=== PATIENT | male | born 1960 | race Caucasian/White ===

== ENCOUNTER 2017-04-20 16:51 | Inpatient (IN) | payer BC ==
[2017-04-20] VITALS (9 sets, daily range): BP systolic 114–180; BP diastolic 72–107; PULSE 95–151; RESP 16–20; O2SAT 96–98
[~2017-04-20] VITALS: Ht 172.7 cm; Wt 108.0 kg
[2017-04-20] MEDS ORDERED: JANT2.5T PO (17:36)
[2017-04-20] MEDS ORDERED: ASPI-516 CHEW (17:36)
[2017-04-20] MEDS ORDERED: JANT5TAB PO (17:36)
[2017-04-20] MEDS ORDERED: OMEP20TA93 PO (17:36)
[2017-04-20] MEDS ORDERED: LISI40TA PO (17:36)
[2017-04-20] MEDS ORDERED: AMLO2.5T PO (17:36)
[2017-04-20] MEDS ORDERED: METO50TA PO (17:36)
[2017-04-20] MEDS ORDERED: ROSU1TAB10 PO (17:36)
[2017-04-20] MEDS ORDERED: ALLO300T2 PO (17:36)
[2017-04-20] MEDS ORDERED: DILTIAZEM HCL 25 MG/5 ML VIAL IV ONE ×2 (17:45→18:15)
--- NOTE | 2017-04-20 17:48 | PD ---
HPI Chief Complaint: Chest Pain Time Seen by Provider: 17:42 Travel History International Travel<30 days: No Contact w/Intl Traveler<30days: No Traveled to known affect area: No History of Present Illness HPI 56yo M with PMH of CAD s/p stent last year, aortic valve replacement on coumadin , here with c/o chest pain that has been worst for 30 minutes. Pain is left sided and had discomfort for 24 hours but worst left 30 minutes. Associated with sob. Denies any fever, n/v, abdominal pain, focal weakness or numbness. PFSH Past Medical History Cardiac Catheterization: Yes High Cholesterol: Yes Coronary Artery Disease: Yes Gout: Yes Hypertension: Yes Tetanus Vaccination: Unknown Influenza Vaccination: No Past Surgical History Coronary Artery Bypass Graft: Yes Valve Replacement: Yes Social History Alcohol Use: Yes (BEER DAILY ) Tobacco Use: No Substance Use: No Allergies-Medications (Allergen,Severity, Reaction): Coded Allergies: No Known Allergies (Unverified , 04/20/17) Reported Meds & Prescriptions Reported Meds & Active Scripts Active Reported Aspirin 81 Mg Chew 81 Mg CHEW DAILY Amlodipine (Amlodipine Besylate) 2.5 Mg Tab 2.5 Mg PO DAILY Rosuvastatin (Rosuvastatin Calcium) 40 Mg Tab 40 Mg PO DAILY Omeprazole 20 Mg Tab 20 Mg PO DAILY Allopurinol 300 Mg Tab 300 Mg PO DAILY Lisinopril 40 Mg Tab 40 Mg PO DAILY Jantoven (Warfarin) 5 Mg Tab 5 Mg PO SAT Jantoven (Warfarin) 2.5 Mg Tab 2.5 Mg PO ALL OTHER DAYS Metoprolol Tartrate 50 Mg Tab 50 Mg PO BID Review of Systems Except as stated in HPI: all other systems reviewed are Neg Physical Exam Narrative GENERAL: 56yo M in moderate distress. SKIN: Focused skin assessment warm/dry. HEAD: Atraumatic. Normocephalic. EYES: Pupils equal and round. No scleral icterus. No injection or drainage. ENT: No nasal bleeding or discharge. Mucous membranes pink and moist. NECK: Trachea midline. No JVD. CARDIOVASCULAR: Irregular rate and rhythm at 148bpm. RESPIRATORY: + accessory muscle use. Clear to auscultation. Breath sounds equal bilaterally. GASTROINTESTINAL: Abdomen soft, non-tender, nondistended. MUSCULOSKELETAL: No obvious deformities. No clubbing. No cyanosis. +Bilateral lower extremity edema. NEUROLOGICAL: Awake and alert. No obvious cranial nerve deficits. Motor grossly within normal limits. Normal speech. PSYCHIATRIC: Appropriate mood and affect; insight and judgment normal. Data Data Last Documented VS Vital Signs Date Time Temp Pulse Resp B/P (MAP) Pulse Ox O2 Delivery O2 Flow Rate FiO2 04/20/17 19:08 148 138/82 04/20/17 19:07 20 97 Nasal Cannula 1.00 Orders Orders Diltiazem Inj (Cardizem Inj) (04/20/17 17:45) Complete Blood Count With Diff (04/20/17 17:44) Basic Metabolic Panel (Bmp) (04/20/17 17:44) Prothrombin Time / Inr (Pt) (04/20/17 17:44) Act Partial Throm Time (Ptt) (04/20/17 17:44) Troponin I (04/20/17 17:44) Chest, Single Ap (04/20/17 ) Diltiazem Inj (Cardizem Inj) (04/20/17 18:00) Diltiazem Inj (Cardizem Inj) (04/20/17 18:15) Diltiazem Inj (Cardizem Inj) (04/20/17 18:30) B-Type Natriuretic Peptide (04/20/17 19:03) Admit Order (Ed Use Only) (04/20/17 19:15) Labs Laboratory Tests Test 04/20/17 17:52 White Blood Count 7.5 TH/MM3 Red Blood Count 6.00 MIL/MM3 Hemoglobin 16.5 GM/DL Hematocrit 48.1 % Mean Corpuscular Volume 80.1 FL Mean Corpuscular Hemoglobin 27.4 PG Mean Corpuscular Hemoglobin Concent 34.2 % Red Cell Distribution Width 14.4 % Platelet Count 227 TH/MM3 Mean Platelet Volume 7.6 FL Neutrophils (%) (Auto) 59.6 % Lymphocytes (%) (Auto) 24.9 % Monocytes (%) (Auto) 13.1 % Eosinophils (%) (Auto) 1.8 % Basophils (%) (Auto) 0.6 % Neutrophils # (Auto) 4.5 TH/MM3 Lymphocytes # (Auto) 1.9 TH/MM3 Monocytes # (Auto) 1.0 TH/MM3 Eosinophils # (Auto) 0.1 TH/MM3 Basophils # (Auto) 0.0 TH/MM3 CBC Comment DIFF FINAL Differential Comment Prothrombin Time 14.9 SEC Prothromb Time International Ratio 1.5 RATIO Activated Partial Thromboplast Time 29.9 SEC Blood Urea Nitrogen 15 MG/DL Creatinine 0.89 MG/DL Random Glucose 107 MG/DL Calcium Level 9.7 MG/DL Sodium Level 138 MEQ/L Potassium Level 3.5 MEQ/L Chloride Level 104 MEQ/L Carbon Dioxide Level 24.3 MEQ/L Anion Gap 10 MEQ/L Estimat Glomerular Filtration Rate 88 ML/MIN Troponin I 0.06 NG/ML [facility] Medical Decision Making Medical Screen Exam Complete: Yes Emergency Medical Condition: Yes Interpretation(s) EKG: Aflutter at 148bpm. No significant ST elevation or depression. EKG #2: AFib at 112bpm. Normal axis. Differential Diagnosis Aflutter RVR vs. ACS vs. pneumonia Narrative Course 56yo M with CAD s/p stent here with left sided chest pain, sob, and diaphoresis. Pt is in aflutter with RVR at 148bpm. Said he has had this before. Pt given cardizem 25mg IV and heart rate was still high. Pt then given cardizem 30mg IV and heart rate improved to low 100s. Will place pt on cardizem drip. Pt is from [place] and does not have boat oar maker here. Pt reevaluated at bedside and currently denies any chest pain or sob. Labs reviewed, no leukocytosis. H/H normal. Troponin slightly elevated at 0.06. Pt is already anticoagulated with coumadin although not therapeutic with INR only 1.5. CXR showed mild bibasilar atelectasis. Discussed with Dr. Vaughn and accepted to her service. Critical Care Narrative Aggregate critical care time was 40 minutes. Time to perform other separately billable procedures was not included in the critical care time. My time did not include minutes spent treating any other patients simultaneously or on activities that did not directly contribute to the patient's treatment. The services I provided to this patient were to treat and/or prevent clinically significant deterioration that could result in: cardiovascular collapse or . I provided critical care services requiring my management, as noted below: Chart data review, documentation time, medication orders and management, vital sign assessments/reviewing monitor data, ordering and reviewing lab tests, ordering and interpreting/reviewing x- rays and diagnostic studies, care of the patient and discussion of the patient with the admitting physicians. Diagnosis Primary Impression: Atrial fibrillation with RVR Additional Impression: Chest pain Qualified Codes: R07.9 - Chest pain, unspecified Admitting Information Admitting Physician Requests: it Rebecca Alvarado DO Apr 20, 2017 17:48
[2017-04-20] MEDS ORDERED: DILTIAZEM HCL 50 MG/10 ML VIAL IV ONE (18:00)
[2017-04-20 18:21] LABS: AUTOMATED NEUTROPHIL # 4.5 TH/MM3 (1.8-7.7); BASOPHIL % 0.6 % (0.0-2.0); EOSINOPHIL # 0.1 TH/MM3 (0-0.4); EOSINOPHIL % 1.8 % (0.0-4.0); HEMATOCRIT 48.1 % (39.0-51.0); HEMOGLOBIN 16.5 GM/DL (13.0-17.0); LYMPH % 24.9 % (9.0-44.0); LYMPHOCYTE # 1.9 TH/MM3 (1.0-4.8); MEAN CELL VOLUME 80.1 FL (80.0-100.0); MEAN CORPUSCULAR HEMOGLOBIN 27.4 PG (27.0-34.0); MEAN CORPUSCULAR HGB CONC 34.2 % (32.0-36.0); MEAN PLATELET VOLUME 7.6 FL (7.0-11.0); MONO % 13.1 % (0.0-8.0); NEUT % 59.6 % (16.0-70.0); PLATELET COUNT 227 TH/MM3 (150-450); RED CELL DISTRIBUTION WIDTH 14.4 % (11.6-17.2); WHITE BLOOD COUNT 7.5 TH/MM3 (4.0-11.0)
--- NOTE | 2017-04-20 18:22 | RADRPT ---
EXAM DATE/TIME: 04/20/2017 17:57 [facility] COMPARISON: No previous studies available for comparison. INDICATIONS : Palpitations, short of breath. Cough. Pt fell on left side 2 months ago. MEDICAL HISTORY : None. SURGICAL HISTORY : CABG. ENCOUNTER: Initial ACUITY: 4 - 6 months PAIN SCORE: 0/10 LOCATION: Bilateral chest FINDINGS: Trace atelectasis seen in both bases. No effusion demonstrated. No pneumothorax. Heart size upper limits of normal. Patient has had previous median sternotomy and aortic valve replac ement. CONCLUSION: Mild basilar atelectasis. Baljinder Eastman MD on April 20, 2017 at 18:20 Board Certified Radiologist. This report was verified electronically.
[2017-04-20 18:33] LABS: INTERNATIONAL NORMALIZED RATIO 1.5 RATIO; PROTHROMBIN TIME - PATIENT 14.9 SEC (9.8-11.6)
[2017-04-20] MEDS: DILTIAZEM INJ 125 MG in SODIUM CHLORIDE 0.9% INJ 100 ML IV PRN (18:43)
[2017-04-20 18:49] LABS: BICARBONATE 24.3 MEQ/L (21.0-32.0); CALCIUM 9.7 MG/DL (8.5-10.1); CREATININE 0.89 MG/DL (0.60-1.30)
[2017-04-20 18:54] LABS: TROPONIN I 0.06 NG/ML (0.02-0.05)
[2017-04-20] MEDS ORDERED: NALOXONE HCL 0.4 MG/ML AMP IV PUSH PRN (20:30)
[2017-04-20] MEDS ORDERED: MAGNESIUM HYDROXIDE SUSP 30 ML CUP PO PRN (20:30)
[2017-04-20] MEDS ORDERED: LACTULOSE SYRUP 20 GM/30 ML CUP PO PRN (20:30)
[2017-04-20] MEDS ORDERED: ONDANSETRON HCL 4 MG/2 ML VIAL IVP PRN (20:30)
[2017-04-20] MEDS ORDERED: ACETAMINOPHEN 325 MG TAB PO PRN (20:30)
[2017-04-20] MEDS ORDERED: SENNOSIDES 8.6 MG TAB PO PRN (20:30)
[2017-04-20] MEDS ORDERED: SODIUM CHLORIDE 0.9% FLUSH 10 ML FLUSH IV FLUSH PRN (20:30)
[2017-04-20] MEDS ORDERED: BISACODYL 10 MG SUPP RECTAL PRN (20:30)
[2017-04-20] MEDS: DOCUSATE SODIUM 50 MG/SENNA 8.6 MG TAB PO SCH (21:00)
[2017-04-20] MEDS ORDERED: METOPROLOL TARTRATE 5 MG/5 ML VIAL IV PUSH SCH (21:15)
--- NOTE | 2017-04-20 21:54 | HHI.HP ---
[facility] Unknown Admission Diagnosis Afib RVR, chest pain Diagnoses: Travel History International Travel<30 Days: No Contact w/Intl Traveler <30 Da: No Traveled to Known Affected Are: No History of Present Illness 56-year-old male with a past medical history significant for hypertension, hyperlipidemia, atrial fibrillation anticoagulated on Coumadin, gout and coronary artery disease status post CABG/stent placement presents to the emergency department for evaluation of chest pain and shortness of breath. The patient reports that the chest pain started yesterday afternoon and felt like a tightness similar to indigestion. He reports that it gradually went away and he was able to sleep last night. The pain then returned this afternoon and was worse with associated shortness of breath, chest tightness that radiated down his left arm. The patient denies any nausea/vomiting. In the emergency department he was found to be diaphoretic and was in atrial flutter with a heart rate in the 150s. The patient does have a history of atrial fibrillation/ flutter for which he takes Coumadin. He reports that his chest pain has completely resolved. Review of Systems Except as stated in HPI: all other systems reviewed are Neg Denies fever or chills Denies blurry vision, otorrhea, rhinorrhea Denies sore throat and cough No abdominal pain Denies constipation/diarrhea/nausea/vomiting Denies muscle pain Denies focal weakness No rashes Past Family Social History Past Medical History Atrial fibrillation anticoagulated on Coumadin Coronary artery disease Hypertension Hyperlipidemia Gout Past Surgical History CABG 210 years ago APR 10 years ago Stent 1 in 2017 Reported Medications Reported Meds & Active Scripts Active Reported Aspirin 81 Mg Chew 81 Mg CHEW DAILY Amlodipine (Amlodipine Besylate) 2.5 Mg Tab 2.5 Mg PO DAILY Rosuvastatin (Rosuvastatin Calcium) 40 Mg Tab 40 Mg PO DAILY Omeprazole 20 Mg Tab 20 Mg PO DAILY Allopurinol 300 Mg Tab 300 Mg PO DAILY Lisinopril 40 Mg Tab 40 Mg PO DAILY Jantoven (Warfarin) 5 Mg Tab 5 Mg PO Mon Jantoven (Warfarin) 2.5 Mg Tab 2.5 Mg PO ALL OTHER DAYS Metoprolol Tartrate 50 Mg Tab 50 Mg PO BID Allergies: Coded Allergies: No Known Allergies (Unverified , 04/20/17) Family History Both parents with CAD Social History Occasional alcohol. Denies tobacco and illicit drugs. Physical Exam Vital Signs Vital Signs Date Time Temp Pulse Resp B/P (MAP) Pulse Ox O2 Delivery O2 Flow Rate FiO2 04/20/17 21:00 150 17 137/91 (106) 97 Nasal Cannula 1.00 04/20/17 20:00 148 18 132/84 (100) 97 Nasal Cannula 1.00 04/20/17 19:46 150 127/87 04/20/17 19:32 150 125/86 04/20/17 19:08 148 138/82 04/20/17 19:07 148 20 138/82 (100) 97 Nasal Cannula 1.00 04/20/17 18:43 129 145/89 04/20/17 18:08 149 18 145/89 (107) 96 Nasal Cannula 2.00 04/20/17 17:33 Nasal Cannula 2.00 04/20/17 17:31 180/103 (128) 171/107 (128) 04/20/17 17:31 151 19 180/103 (128) 97 Physical Exam GENERAL: male sitting up in bed SKIN: No rashes, ecchymoses or lesions. Cool and dry. HEAD: Atraumatic. Normocephalic. No temporal or scalp tenderness. EYES: Pupils equal round and reactive. Extraocular motions intact. No scleral icterus. No injection or drainage. ENT: Nose without bleeding, purulent drainage or septal hematoma. Throat without erythema, tonsillar hypertrophy or exudate. Uvula midline. Airway patent. NECK: Trachea midline. No JVD or lymphadenopathy. Supple, nontender, no meningeal signs. CARDIOVASCULAR: Regular rate and rhythm without murmurs, gallops, or rubs. RESPIRATORY: Clear to auscultation. Breath sounds equal bilaterally. No wheezes , rales, or rhonchi. GASTROINTESTINAL: Abdomen soft, non-tender, nondistended. No hepato-splenomegaly , or palpable masses. No guarding. MUSCULOSKELETAL: Extremities without clubbing, cyanosis, or edema. No joint tenderness, effusion, or edema noted. No calf tenderness. NEUROLOGICAL: Awake and alert. Cranial nerves II through XII intact. Motor and sensory grossly within normal limits. Normal speech. Laboratory Laboratory Tests Test 04/20/17 17:52 04/20/17 19:45 White Blood Count 7.5 Red Blood Count 6.00 Hemoglobin 16.5 Hematocrit 48.1 Mean Corpuscular Volume 80.1 Mean Corpuscular Hemoglobin 27.4 Mean Corpuscular Hemoglobin Concent 34.2 Red Cell Distribution Width 14.4 Platelet Count 227 Mean Platelet Volume 7.6 Neutrophils (%) (Auto) 59.6 Lymphocytes (%) (Auto) 24.9 Monocytes (%) (Auto) 13.1 Eosinophils (%) (Auto) 1.8 Basophils (%) (Auto) 0.6 Neutrophils # (Auto) 4.5 Lymphocytes # (Auto) 1.9 Monocytes # (Auto) 1.0 Eosinophils # (Auto) 0.1 Basophils # (Auto) 0.0 CBC Comment DIFF FINAL Differential Comment Prothrombin Time 14.9 Prothromb Time International Ratio 1.5 Activated Partial Thromboplast Time 29.9 Blood Urea Nitrogen 15 Creatinine 0.89 Random Glucose 107 Calcium Level 9.7 Sodium Level 138 Potassium Level 3.5 Chloride Level 104 Carbon Dioxide Level 24.3 Anion Gap 10 Estimat Glomerular Filtration Rate 88 Troponin I 0.06 B-Type Natriuretic Peptide 302 Result Diagram: 04/20/17175104/20/171751 Caprini VTE Risk Assessment Caprini VTE Risk Assessment: Mod/High Risk (score >= 2) Caprini Risk Assessment Model Point Value = 1 Point Value = 2 Point Value = 3 Point Value = 5 Age 41-60 Minor surgery BMI > 25 kg/m2 Swollen legs Varicose veins or History of unexplained or recurrent spontaneous Oral contraceptives or hormone replacement Sepsis (< 1 month) Serious lung disease, including pneumonia (< 1 month) Abnormal pulmonary function Acute myocardial infarction Congestive heart failure (< 1 month) History of inflammatory bowel disease Medical patient at bed rest Age 61-74 Arthroscopic surgery Major open surgery (> 45 min) Laparoscopic surgery (> 45 min) Malignancy Confined to bed (> 72 hours) Immobilizing plaster cast Central venous access Age >= 75 History of VTE Family history of VTE Factor V Leiden Prothrombin [id number] Lupus anticoagulant Anticardiolipin antibodies Elevated serum homocysteine Heparin-induced thrombocytopenia Other congenital or acquired thrombophilia Stroke (< 1 month) Elective arthroplasty Hip, pelvis, or leg fracture Acute spinal cord injury (< 1 month) Prophylaxis Regimen Total Risk Factor Score Risk Level Prophylaxis Regimen 0-1 Low Early ambulation 2 Moderate Order ONE of the following: *Sequential Compression Device (SCD) *Heparin 5000 units SQ BID 3-4 Higher Order ONE of the following medications: *Heparin 5000 units SQ TID *Enoxaparin/Lovenox 40 mg SQ daily (WT < 150 kg, CrCl > 30 mL/min) *Enoxaparin/Lovenox 30 mg SQ daily (WT < 150 kg, CrCl > 10-29 mL/min) *Enoxaparin/Lovenox 30 mg SQ BID (WT < 150 kg, CrCl > 30 mL/min) AND/OR *Sequential Compression Device (SCD) 5 or more Highest Order ONE of the following medications: *Heparin 5000 units SQ TID (Preferred with Epidurals) *Enoxaparin/Lovenox 40 mg SQ daily (WT < 150 kg, CrCl > 30 mL/min) *Enoxaparin/Lovenox 30 mg SQ daily (WT < 150 kg, CrCl > 10-29 mL/min) *Enoxaparin/Lovenox 30 mg SQ BID (WT < 150 kg, CrCl > 30 mL/min) AND *Sequential Compression Device (SCD) Assessment and Plan Assessment and Plan Assessment/plan: 1. Atrial flutter EKG significant for atrial flutter with rapid ventricular response, pulse 148, personally reviewed Patient on diltiazem drip at maximum dosing with heart rate remaining in the 150s IV metoprolol 1 Continue home metoprolol Continue home Coumadin, subtherapeutic with an INR of 1.5 - patient reports he missed his dosing on Monday Pharmacy consulted to assist with Coumadin management Telemetry Consider cardiology consult if patient's rate remains uncontrolled 2. Chest pain/elevated troponin Resolved EKG without ST segment elevations or depressions, personally reviewed Initial troponin 0.06, likely secondary to atrial flutter ACS rule out pending; serial troponins/EKGs 3. CAD/hypertension/hyperlipidemia Continue home medications FEN Heart healthy diet Electrolytes: Replete when necessary Heparin as INR subtherapeutic Physician Certification 2 Midnight Certification Type: Admission for Inpatient Services Order for Inpatient Services The services are ordered in accordance with Medicare regulations or non- Medicare payer requirements, as applicable. In the case of services not specified as inpatient-only, they are appropriately provided as inpatient services in accordance with the 2-midnight benchmark. Estimated LOS (days): 2 2 days is the estimated time the patient will need to remain in the hospital, assuming treatment plan goals are met and no additional complications. Post-Hospital Plan: Not yet determined Shy Vaughn MD Apr 20, 2017 21:54
[2017-04-20] MEDS: HEPARIN SODIUM - SQ 10,000 UNITS/ML VIAL SQ SCH (22:14)
[2017-04-20] MEDS: SODIUM CHLORIDE 0.9% FLUSH 10 ML FLUSH IV FLUSH SCH (22:15)
[2017-04-20] MEDS: METOPROLOL TARTRATE 50 MG TAB PO SCH (22:15)
[2017-04-21] VITALS (33 sets, daily range): BP systolic 101–147; BP diastolic 56–110; PULSE 58–144; RESP 16–20; TEMP 98.1–98.2; O2SAT 94–98
[2017-04-21 00:50] LABS: TROPONIN I 0.11 NG/ML (0.02-0.05)
[2017-04-21] MEDS: HEPARIN SODIUM - SQ 10,000 UNITS/ML VIAL SQ SCH (06:31)
[2017-04-21] MEDS: METOPROLOL TARTRATE 50 MG TAB PO SCH ×2 (06:57→21:09)
[2017-04-21 07:29] LABS: BICARBONATE 25.9 MEQ/L (21.0-32.0); CALCIUM 9.3 MG/DL (8.5-10.1); CREATININE 0.88 MG/DL (0.60-1.30)
[2017-04-21 07:33] LABS: TROPONIN I 0.12 NG/ML (0.02-0.05)
[2017-04-21] MEDS: LISINOPRIL 20 MG TAB PO SCH (07:51)
[2017-04-21] MEDS: ATORVASTATIN 80 MG TAB PO SCH (07:52)
[2017-04-21] MEDS: amLODIPine BESYLATE 5 MG TAB PO SCH (07:52)
[2017-04-21] MEDS: ALLOPURINOL 300 MG TAB PO SCH (07:52)
[2017-04-21] MEDS: PANTOPRAZOLE SOD 20 MG DELAYED RELEASE TAB PO SCH (07:52)
[2017-04-21] MEDS: DILTIAZEM INJ 125 MG in SODIUM CHLORIDE 0.9% INJ 100 ML IV PRN (07:55)
[2017-04-21 08:44] LABS: INTERNATIONAL NORMALIZED RATIO 1.4 RATIO; PROTHROMBIN TIME - PATIENT 14.2 SEC (9.8-11.6)
[2017-04-21 08:47] LABS: BASOPHIL % 0.7 % (0.0-2.0); EOSINOPHIL # 0.2 TH/MM3 (0-0.4); HEMATOCRIT 47.5 % (39.0-51.0); HEMOGLOBIN 16.2 GM/DL (13.0-17.0); LYMPHOCYTE # 1.7 TH/MM3 (1.0-4.8); MEAN CELL VOLUME 80.3 FL (80.0-100.0); MEAN CORPUSCULAR HEMOGLOBIN 27.4 PG (27.0-34.0); MEAN CORPUSCULAR HGB CONC 34.1 % (32.0-36.0); MEAN PLATELET VOLUME 7.8 FL (7.0-11.0); MONO % 11.1 % (0.0-8.0); MONOCYTE # 0.7 TH/MM3 (0-0.9); NEUT % 60.2 % (16.0-70.0); PLATELET COUNT 216 TH/MM3 (150-450); RED BLOOD COUNT 5.92 MIL/MM3 (4.50-5.90); RED CELL DISTRIBUTION WIDTH 14.6 % (11.6-17.2); WHITE BLOOD COUNT 6.7 TH/MM3 (4.0-11.0)
[2017-04-21] MEDS: DOCUSATE SODIUM 50 MG/SENNA 8.6 MG TAB PO SCH ×2 (09:00→21:00)
[2017-04-21] MEDS: SODIUM CHLORIDE 0.9% FLUSH 10 ML FLUSH IV FLUSH SCH ×2 (09:43→21:09)
--- NOTE | 2017-04-21 12:17 | HHI.PR ---
Subjective Remarks This is a pleasant 56 y/o male with Hypertension, Hyperlipidemia, Atrial Fibrillation, anticoagulated with Warfarin, Gout, CAD status post CABG x 2, 2006 and PCI with Stent placement 2016, who came to ER with Shortness of breath, Chest pain, Seen in his bedroom in the presence of his , he has PAF, seen by title specialist, Aortic valve disease post Mechanical aortic valve replacement 2006, has also HAI, recommended to start Propafenone to help sinus rhythm, Continue home cardiac medicines, Stress test in am tomorrow, His INR 1.4 subtherapeutic, increased his Warfarin but started on heparin until INR above 2.2. no Nausea, vomit or diarrhea. Objective Vital Signs Date Time Temp Pulse Resp B/P (MAP) Pulse Ox O2 Delivery O2 Flow Rate FiO2 04/21/17 12:00 98 04/21/17 11:32 94 Nasal Cannula 2.00 04/21/17 11:31 98.1 70 18 113/72 (86) 94 04/21/17 11:00 94 04/21/17 10:00 70 04/21/17 09:00 71 04/21/17 08:32 132/75 (94) 04/21/17 08:26 95 132/75 (94) 04/21/17 07:55 86 153/92 04/21/17 07:08 143 18 135/83 (100) 98 Nasal Cannula 2.00 04/21/17 06:40 144 19 134/89 (104) 97 Nasal Cannula 1.00 04/21/17 05:40 114 17 137/90 (106) 96 Nasal Cannula 1.00 04/21/17 05:20 120 106/69 04/21/17 05:00 72 16 126/74 (91) 96 Nasal Cannula 1.00 04/21/17 04:40 144 17 143/86 (105) 96 Nasal Cannula 1.00 04/21/17 04:40 145 143/86 04/21/17 04:00 140 17 147/110 (122) 97 Nasal Cannula 1.00 04/21/17 04:00 142 142/98 04/21/17 03:40 94 18 122/64 (83) 96 Nasal Cannula 1.00 04/21/17 03:20 70 20 119/56 (77) 95 Nasal Cannula 1.00 04/21/17 02:40 70 18 132/80 (97) 96 Nasal Cannula 1.00 04/21/17 02:00 73 16 135/84 (101) 95 Nasal Cannula 1.00 04/21/17 01:00 71 18 125/75 (92) 96 Nasal Cannula 1.00 04/21/17 00:40 72 18 132/77 (95) 96 Nasal Cannula 1.00 04/21/17 00:00 95 124/72 04/20/17 23:51 95 128/79 04/20/17 23:40 95 20 128/79 (95) 96 Nasal Cannula 1.00 04/20/17 23:27 106 135/81 04/20/17 23:20 106 16 135/81 (99) 96 Nasal Cannula 1.00 04/20/17 22:40 147 18 133/97 (109) 98 Nasal Cannula 1.00 04/20/17 22:00 150 20 114/72 (86) 96 Nasal Cannula 1.00 04/20/17 21:00 150 17 137/91 (106) 97 Nasal Cannula 1.00 04/20/17 20:00 148 18 132/84 (100) 97 Nasal Cannula 1.00 04/20/17 19:46 150 127/87 04/20/17 19:32 150 125/86 04/20/17 19:08 148 138/82 04/20/17 19:07 148 20 138/82 (100) 97 Nasal Cannula 1.00 04/20/17 18:43 129 145/89 04/20/17 18:08 149 18 145/89 (107) 96 Nasal Cannula 2.00 04/20/17 17:33 Nasal Cannula 2.00 04/20/17 17:31 180/103 (128) 171/107 (128) 04/20/17 17:31 151 19 180/103 (128) 97 Result Diagram: 04/21/17 0722 04/21/17 0615 Imaging Last Impressions Chest X-Ray 04/20/17 0000 Signed Impressions: Service Date/Time: April 17:57 - CONCLUSION: Mild basilar atelectasis. Baljinder Eastman MD Procedures None Other Results Laboratory Tests Test 04/20/17 17:52 04/20/17 19:45 04/21/17 00:00 04/21/17 06:15 Activated Partial Thromboplast Time 29.9 SEC B-Type Natriuretic Peptide 302 PG/ML Creatine Kinase MB 5.2 NG/ML Creatine Kinase MB % 1.7 % Blood Urea Nitrogen 14 MG/DL Creatinine 0.88 MG/DL Random Glucose 107 MG/DL Calcium Level 9.3 MG/DL Sodium Level 138 MEQ/L Potassium Level 3.8 MEQ/L Chloride Level 104 MEQ/L Carbon Dioxide Level 25.9 MEQ/L Anion Gap 8 MEQ/L Estimat Glomerular Filtration Rate 89 ML/MIN Total Creatine Kinase 296 U/L Troponin I 0.12 NG/ML Test 04/21/17 07:22 White Blood Count 6.7 TH/MM3 Red Blood Count 5.92 MIL/MM3 Hemoglobin 16.2 GM/DL Hematocrit 47.5 % Mean Corpuscular Volume 80.3 FL Mean Corpuscular Hemoglobin 27.4 PG Mean Corpuscular Hemoglobin Concent 34.1 % Red Cell Distribution Width 14.6 % Platelet Count 216 TH/MM3 Mean Platelet Volume 7.8 FL Neutrophils (%) (Auto) 60.2 % Lymphocytes (%) (Auto) 25.0 % Monocytes (%) (Auto) 11.1 % Eosinophils (%) (Auto) 3.0 % Basophils (%) (Auto) 0.7 % Neutrophils # (Auto) 4.0 TH/MM3 Lymphocytes # (Auto) 1.7 TH/MM3 Monocytes # (Auto) 0.7 TH/MM3 Eosinophils # (Auto) 0.2 TH/MM3 Basophils # (Auto) 0.0 TH/MM3 CBC Comment DIFF FINAL Differential Comment Prothrombin Time 14.2 SEC Prothromb Time International Ratio 1.4 RATIO Objective Remarks GENERAL: male sitting up in bed SKIN: No rashes, ecchymoses or lesions. Cool and dry. HEAD: Atraumatic. Normocephalic. No temporal or scalp tenderness. EYES: Pupils equal round and reactive. Extraocular motions intact. No scleral icterus. No injection or drainage. ENT: Nose without bleeding, purulent drainage or septal hematoma. Throat without erythema, tonsillar hypertrophy or exudate. Uvula midline. Airway patent. NECK: Trachea midline. No JVD or lymphadenopathy. Supple, nontender, no meningeal signs. CARDIOVASCULAR: Regular rate and rhythm without murmurs, gallops, or rubs. RESPIRATORY: Clear to auscultation. Breath sounds equal bilaterally. No wheezes , rales, or rhonchi. GASTROINTESTINAL: Abdomen soft, non-tender, nondistended. No hepato-splenomegaly , or palpable masses. No guarding. MUSCULOSKELETAL: Extremities without clubbing, cyanosis, or edema. No joint tenderness, effusion, or edema noted. No calf tenderness. NEUROLOGICAL: Awake and alert. Cranial nerves II through XII intact. Motor and sensory grossly within normal limits. Normal speech. Medications and IVs Current Medications Medications (Trade) Dose Ordered Sig/Hollis Route Start Time Stop Time Status Last Admin Diltiazem HCl 125 mg/Sodium Chloride 125 ml @ 5 mls/hr TITRATE PRN IV 04/20/17 18:30 04/21/17 07:55 (NS Flush) 2 ml UNSCH PRN IV FLUSH 04/20/17 20:30 (NS Flush) 2 ml BID IV FLUSH 04/20/17 21:00 04/21/17 09:43 (Tylenol) 650 mg Q4H PRN PO 04/20/17 20:30 (Zofran Inj) 4 mg Q6H PRN IVP 04/20/17 20:30 (Heparin Inj) 5,000 units Q8H SQ 04/20/17 22:00 04/21/17 06:31 (Narcan Inj) 0.4 mg UNSCH PRN IV PUSH 04/20/17 20:30 (Mariam-Colace) 1 tab BID PO 04/20/17 21:00 (Milk Of Magnesia Liq) 30 ml Q12H PRN PO 04/20/17 20:30 (Senokot) 17.2 mg Q12H PRN PO 04/20/17 20:30 (Dulcolax Supp) 10 mg DAILY PRN RECTAL 04/20/17 20:30 (Lactulose Liq) 30 ml DAILY PRN PO 04/20/17 20:30 (Zyloprim) 300 mg DAILY PO 04/21/17 09:00 04/21/17 07:52 (Norvasc) 2.5 mg DAILY PO 04/21/17 09:00 04/21/17 07:52 (Lopressor) 50 mg BID PO 04/20/17 21:00 04/21/17 06:57 (Coumadin) 2.5 mg SuMoWeFr@1600 PO 04/23/17 16:00 (Coumadin) 5 mg TuThSa@1600 PO 04/22/17 16:00 (Prinivil) 40 mg DAILY PO 04/21/17 09:00 04/21/17 07:51 (Protonix) 20 mg DAILY PO 04/21/17 09:00 04/21/17 07:52 (Lipitor) 80 mg DAILY PO 04/21/17 09:00 04/21/17 07:52 Pharmacy Profile Note 0 ml @ 0 mls/hr UNSCH OTHER 04/20/17 20:45 A/P Assessment and Plan 1. Atrial Fibrillation in a patient with CAD status post CABG x 2, 2006 and PCI with Stent placement 2016, who came to ER with Shortness of breath, has atypical chest pain, recommended by Cardiology to start heparin until INR therapeutic in 2.2, the patient has also Aortic valve disease post Mechanical aortic valve replacement 2006, started on Propafenone to help sinus rhythm, continue Cardiac medicines Stress test tomorrow. 2. unstable angina Stress test tomorrow 3. Hypertension controlled 4. Hyperlipidemia 5. HAI needs Polysomnography as outpatient 6. Obesity strongly recommended diet and exercise as outpatient DVT prophylaxis on Heparin. GI prophylaxis with Protonix Lobo Sun MD Apr 21, 2017 12:17
[2017-04-21 13:11] LABS: CHOLESTEROL 149 MG/DL (120-200); TRIGLYCERIDES 279 MG/DL (42-150)
[2017-04-21 13:37] LABS: CHOLESTEROL/ HDL RATIO 5.55 RATIO; FREE T4 0.99 NG/DL (0.76-1.46); HDL CHOLESTEROL 26.8 MG/DL (40.0-60.0); LDL CHOLESTEROL 66 MG/DL (0-99)
[2017-04-21 13:38] LABS: FOLATE GREATER THAN 20.0 NG/ML (3.1-17.5)
--- NOTE | 2017-04-21 14:08 | EKG ---
Date Performed: 04/20/2017 Time Performed: 17:35:09 PTAGE: 56 years EKG: ATRIAL FLUTTER/TACHYCARDIA WITH RAPID VENTRICULAR RESPONSE LEFT VENTRICULAR HYPERTROPHY AND ST-T CHANGE LATERAL MYOCARDIAL INFARCTION ABNORMAL ECG NO PREVIOUS TRACING Lead reversal in I and aVR. Recommend repeat tracing; otherwise agree . DOCTOR: Chet Martinez Interpretating Date/Time 04/21/2017 14:07:21
--- NOTE | 2017-04-21 14:08 | EKG ---
Date Performed: 04/20/2017 Time Performed: 18:15:41 PTAGE: 56 years EKG: ATRIAL FLUTTER/TACHYCARDIA WITH RAPID VENTRICULAR RESPONSE ST DEVIATION AND MODERATE T-WAVE ABNORMALITY, CONSIDER ANTEROLATERAL ISCHEMIA ST DEVIATION AND MODERATE T-WAVE ABNORMALITY, CONSIDER INFERIOR ISCHEMIA ABNORMAL ECG PREVIOUS TRACING 04/20/2017 More prominent inferolateral T-wave changes, cannot rule out ische diane. Clinical correlation recommended. DOCTOR: Chet Martinez Interpretating Date/Time 04/21/2017 14:08:03
[2017-04-21] MEDS ORDERED: HEPARIN-D5W 25,000 U/250 ML 250 ML IV PRN (15:45)
[2017-04-21] MEDS ORDERED: WARFARIN SOD 6 MG TAB PO ONE (16:00)
--- NOTE | 2017-04-21 16:18 | MB ---
cc: Joss Edwards MD DATE OF CONSULT: 04/21/2017 REASON FOR CONSULTATION: Chest pain, atrial flutter. HISTORY OF PRESENT ILLNESS: The patient is a very pleasant 56-year-old white male, visiting from [place], with a history of coronary artery disease, aortic valve disease, hypertension, hyperlipidemia, sleep apnea, who presented to the hospital with complaints of chest discomfort and shortness of breath. In the Emergency Department, he was found to be in atrial flutter with a rapid ventricular response. For the past 2 days he has had mostly constant left upper chest discomfort described as "pressure" associated with shortness of breath. The intensity of the chest discomfort would wax and wane throughout the day. There was no definite relationship of the chest pain to exertion. He denies pleurisy, lightheadedness, syncope, near syncope, pedal edema, paroxysmal nocturnal dyspnea. At times over the last 2 days he has noticed some racing palpitations. Since coming into the hospital, he has had no further chest discomfort and his shortness of breath has resolved. PAST MEDICAL HISTORY: 1. History of bicuspid aortic valve, status post aortic valve replacement with a mechanical valve in approximately May 2006. 2. Coronary artery disease with 2-vessel bypass surgery September 2006 after he apparently developed possibly thrombus in his left main a few months after his aortic valve surgery. The patient also states he underwent coronary stenting last year. 3. Hypertension. 4. Hyperlipidemia. 5. Gout. 6. Sleep apnea. MEDICATIONS: 1. Aspirin 81 mg daily. 2. Amlodipine 2.5 mg daily. 3. Crestor 40 mg at bedtime. 4. Lisinopril 40 mg daily. 5. Warfarin 5 mg Monday, , Monday, 2.5 mg all other days. 6. Metoprolol tartrate 50 mg b.i.d. ALLERGIES: NO KNOWN DRUG ALLERGIES. FAMILY HISTORY: Noncontributory to the present situation. SOCIAL HISTORY: The patient denies any history of alcohol or tobacco abuse. REVIEW OF SYSTEMS: As in the History Of Present Illness, otherwise negative or noncontributory. He also denies headache, abdominal pain, melena, dyspepsia, bright red blood per rectum, fevers. PHYSICAL EXAMINATION: VITAL SIGNS: Blood pressure 101/66 with a pulse of 76, respirations 18. GENERAL: He is a well-developed, well-nourished white male, in no acute distress. HEENT/NECK: Jugular venous pressure is normal. Carotid pulses are 2+ bilaterally and without bruits. RESPIRATORY: Examination of the chest reveals clear lung baig. HEART: On cardiac examination he has a regular rhythm and rate with a grade 1/6 systolic murmur heard throughout the precordium. The aortic valve replacement sounds are crisp. No gallop is audible on abdominal examination, ABDOMEN: He has a soft, obese, nontender abdomen. Bowel sounds are present. There is no definite hepatosplenomegaly. EXTREMITIES: Reveals no clubbing, cyanosis or edema. EKG from 04/20/2017 shows atrial flutter with 2:1 AV conduction, nonspecific ST and T-wave abnormalities, probable arm lead reversal. Chest x-ray shows mild basilar atelectasis. LABORATORY DATA: Laboratory data includes normal CBC. Potassium 3.8, BUN 14, creatinine 0.88. Troponin 0.12, CK 309, with 1.7% MB fraction. LDL 66, total cholesterol 149, HDL 27, triglycerides 279. IMPRESSION: Paroxysmal atrial flutter, atypical chest pain in this 56-year-old white male with a history of coronary artery disease, status post 2 vessel bypass surgery in 2006 and coronary stenting last year, history of aortic valve disease status post mechanical aortic valve replacement in 2006, hyperlipidemia, hypertension, sleep apnea. At this time, he is back in sinus rhythm. His chest pains in the last 2 days are overall atypical for myocardial ischemia. They had been constant for those 2 days, although waxing and waning in severity. His troponin level is slightly abnormal, although this may have been due to the atrial tachyarrhythmia on presentation. EKGs in atrial flutter showed nonspecific changes. A repeat EKG in sinus rhythm is pending. RECOMMENDATIONS: 1. We will start propafenone to help maintain sinus rhythm. 2. Continue his home cardiac medications. 3. Check a Lexiscan nuclear stress test in the morning to rule out acute myocardial ischemia. 4. His INR (1.4) is subtherapeutic; would recommend increasing his warfarin dose and maintaining a heparin drip until his INR is at least above 2.2. MD DEAN Bashir/DHARMESH , 03:38 PM , 04:17 PM CHAVEZ
[2017-04-21 17:00] LABS: HEMOGLOBIN A1C 5.5 % (4.3-6.0)
[2017-04-21] MEDS ORDERED: POTASSIUM CHLORIDE 20 MEQ CONTROLLED RELEASE TAB PO ONE (17:30)
[2017-04-21] MEDS: PROPAFENONE HCL 150 MG TAB PO SCH (17:47)
--- NOTE | 2017-04-21 17:54 | ECHRPT ---
Indication: A FIB FLUTTER CONCLUSIONS Normal left ventricular size. Wall thickness is normal. The left ventricular systolic function is no rmal with an estimated ejection fraction in the range of 55-60%. [id number] mitral valve regurgitation. The aortic valve is poorly visualized. Reportedly mechanical prosthesis. Normal function by Doppl er interrogation. Mild tricuspid valve regurgitation. The estimated pulmonary arterial pressure is 37 mmHg. BP: 113 / 72 HR: Rhythm: MEASUREMENTS (Male / Female) Normal Values Technical Quality:Fair 2D ECHO LV Diastolic Diameter PLAX 4.4 cm 4.2 - 5.9 / 3.9 - 5.3 cm LV Systolic Diameter PLAX 3.2 cm IVS Diastolic Thickness 1.3 cm 0.6 - 1.0 / 0.6 - 0.9 cm LVPW Diastolic Thickness 1.3 cm 0.6 - 1.0 / 0.6 - 0.9 cm LV Relative Wall Thickness 0.6 RV Internal Dim ED PLAX 3.5 cm LVOT Diameter 1.8 cm LA Systolic Diameter LX 5.0 cm 3.0 - 4.0 / 2.7 - 3.8 cm DOPPLER AV Peak Velocity 246.5 cm/s AV Peak Gradient 24.3 mmHg AV Mean Gradient 12.0 mmHg AV Velocity Time Integral 47.1 cm LVOT Peak Velocity 111.5 cm/s LVOT Peak Gradient 5.0 mmHg LVOT Velocity Time Integral 23.3 cm AV Area Cont Eq vti 1.3 cm AV Area Cont Eq pk 1.2 cm MV Area PHT 3.5 cm Mitral E Point Velocity 122.0 cm/s Mitral A Point Velocity 65.6 cm/s Mitral E to A Ratio 1.9 LV E' Lateral Velocity 6.6 cm/s Mitral E to LV E' Lateral Ratio 18.4 LV E' Septal Velocity 5.8 cm/s Mitral E to LV E' Septal Ratio 21.1 TR Peak Velocity 261.0 cm/s TR Peak Gradient 27.2 mmHg Right Atrial Pressure 10.0 mmHg Pulmonary Artery Systolic Pressu 37.2 mmHg Right Ventricular Systolic Press 37.2 mmHg FINDINGS LEFT VENTRICLE Normal left ventricular size. Wall thickness is normal. The left ventricular systolic function is normal with an estimated ejection fraction in the range of 55-60%. RIGHT VENTRICLE Normal right ventricular size and systolic function. LEFT ATRIUM The left atrial size is normal. RIGHT ATRIUM The right atrial size is normal. ATRIAL SEPTUM Normal atrial septal thickness without atrial level shunting by limited color doppler interrogation. AORTA The aortic root and proximal ascending aorta are normal in size on limited imaging. MITRAL VALVE [id number]-[id number] mitral valve regurgitation. AORTIC VALVE The aortic valve is poorly visualized. Reportedly mechanical prosthesis. Normal function by Doppl er interrogation. TRICUSPID VALVE There is mild tricuspid valve regurgitation. The estimated pulmonary arterial pressure is 37 mmHg. PULMONARY VALVE No pulmonary valve regurgitation or stenosis. VESSELS The inferior vena cava is normal in size. PERICARDIUM No pericardial effusion. Joss Edwards MD (Electronically Signed) Final Date:21 April 2017 17:54
[2017-04-21] MEDS ORDERED: HEPARIN SODIUM - IV 10,000 UNITS/10 ML VIAL IV PUSH PRN (21:45)
[2017-04-21] MEDS ORDERED: HEPARIN - 10,000 UNITS/ML IV ADDITIVE IV PUSH PRN (21:45)
[2017-04-22] VITALS (22 sets, daily range): BP systolic 112–138; BP diastolic 69–79; PULSE 57–70; RESP 16–18; TEMP 98–98.2; O2SAT 95–97
[2017-04-22 05:30] LABS: INTERNATIONAL NORMALIZED RATIO 1.2 RATIO; PROTHROMBIN TIME - PATIENT 12.6 SEC (9.8-11.6)
[2017-04-22 05:53] LABS: MAGNESIUM 2.1 MG/DL (1.5-2.5); PHOSPHORUS 4.1 MG/DL (2.5-4.9)
[2017-04-22] MEDS: DOCUSATE SODIUM 50 MG/SENNA 8.6 MG TAB PO SCH (09:00)
[2017-04-22] MEDS: PROPAFENONE HCL 150 MG TAB PO SCH ×2 (09:40→14:57)
[2017-04-22] MEDS: PANTOPRAZOLE SOD 20 MG DELAYED RELEASE TAB PO SCH (09:40)
[2017-04-22] MEDS: ATORVASTATIN 80 MG TAB PO SCH (09:40)
[2017-04-22] MEDS: amLODIPine BESYLATE 5 MG TAB PO SCH (09:40)
[2017-04-22] MEDS: LISINOPRIL 20 MG TAB PO SCH (09:40)
[2017-04-22] MEDS: METOPROLOL TARTRATE 50 MG TAB PO SCH (09:40)
[2017-04-22] MEDS: SODIUM CHLORIDE 0.9% FLUSH 10 ML FLUSH IV FLUSH SCH (09:40)
[2017-04-22] MEDS: ALLOPURINOL 300 MG TAB PO SCH (09:41)
--- NOTE | 2017-04-22 10:19 | PD.CARD.PN ---
Subjective Subjective Remarks Denies dyspnea, CP, dizziness, palpitations, nausea. Objective Medications Item Value Date Time Warfarin Sodium 7.5 mg 04/22/17 1600 (Coumadin) DAILY@1600/PO Propafenone HCl 150 mg 04/21/17 1800 (Rythmol) TID/PO 04/22/17 0940 Heparin Sodium/ 250 ml @ 10 mls/hr 04/21/17 1545 Dextrose TITRATE PRN/IV 04/21/17 1658 Amlodipine 2.5 mg 04/21/17 0900 Besylate DAILY/PO 04/22/17 0940 (Norvasc) Lisinopril 40 mg 04/21/17 0900 (Prinivil) DAILY/PO 04/22/17 0940 Atorvastatin 80 mg 04/21/17 0900 Calcium DAILY/PO 04/22/17 0940 (Lipitor) Metoprolol 50 mg 04/20/17 2100 Tartrate BID/PO 04/22/17 0940 (Lopressor) Current Medications Medications (Trade) Dose Ordered Sig/Hollis Route Start Time Stop Time Status Last Admin (NS Flush) 2 ml UNSCH PRN IV FLUSH 04/20/17 20:30 (NS Flush) 2 ml BID IV FLUSH 04/20/17 21:00 04/22/17 09:40 (Tylenol) 650 mg Q4H PRN PO 04/20/17 20:30 (Zofran Inj) 4 mg Q6H PRN IVP 04/20/17 20:30 (Narcan Inj) 0.4 mg UNSCH PRN IV PUSH 04/20/17 20:30 (Mariam-Colace) 1 tab BID PO 04/20/17 21:00 (Milk Of Magnesia Liq) 30 ml Q12H PRN PO 04/20/17 20:30 (Senokot) 17.2 mg Q12H PRN PO 04/20/17 20:30 (Dulcolax Supp) 10 mg DAILY PRN RECTAL 04/20/17 20:30 (Lactulose Liq) 30 ml DAILY PRN PO 04/20/17 20:30 (Zyloprim) 300 mg DAILY PO 04/21/17 09:00 04/22/17 09:41 (Norvasc) 2.5 mg DAILY PO 04/21/17 09:00 04/22/17 09:40 (Lopressor) 50 mg BID PO 04/20/17 21:00 04/22/17 09:40 (Prinivil) 40 mg DAILY PO 04/21/17 09:00 04/22/17 09:40 (Protonix) 20 mg DAILY PO 04/21/17 09:00 04/22/17 09:40 (Lipitor) 80 mg DAILY PO 04/21/17 09:00 04/22/17 09:40 Pharmacy Profile Note 0 ml @ 0 mls/hr UNSCH OTHER 04/20/17 20:45 (Coumadin) 7.5 mg DAILY@1600 PO 04/22/17 16:00 (Heparin Inj) 5,000 units UNSCH PRN IV PUSH 04/21/17 21:45 (Heparin Inj) 2,500 units UNSCH PRN IV PUSH 04/21/17 21:45 04/22/17 01:11 Heparin Sodium/ Dextrose 250 ml @ 10 mls/hr TITRATE PRN IV 04/21/17 15:45 04/21/17 16:58 (Rythmol) 150 mg TID PO 04/21/17 18:00 04/22/17 09:40 Vital Signs / I&O Vital Signs Date Time Temp Pulse Resp B/P (MAP) Pulse Ox O2 Delivery O2 Flow Rate FiO2 04/22/17 09:00 68 04/22/17 08:00 65 04/22/17 07:36 98.2 68 18 128/76 (93) 95 04/22/17 07:32 95 Room Air 04/22/17 07:00 66 04/22/17 06:00 58 04/22/17 05:00 62 04/22/17 04:00 60 04/22/17 03:57 62 16 112/69 (83) 97 04/22/17 03:00 60 04/22/17 02:00 62 04/22/17 01:00 68 04/22/17 00:00 60 04/21/17 23:45 61 16 104/57 (73) 96 04/21/17 23:00 58 04/21/17 22:00 58 04/21/17 21:00 60 04/21/17 20:00 66 04/21/17 19:20 95 Room Air 04/21/17 19:20 98.1 67 18 118/67 (84) 95 04/21/17 19:00 66 04/21/17 18:00 74 04/21/17 17:00 86 04/21/17 16:00 71 04/21/17 15:12 95 Room Air 04/21/17 15:12 98.2 76 18 101/66 (78) 95 04/21/17 15:00 73 04/21/17 14:00 92 04/21/17 13:00 102 04/21/17 12:00 98 04/21/17 11:32 94 Nasal Cannula 2.00 04/21/17 11:31 98.1 70 18 113/72 (86) 94 04/21/17 11:00 94 I/O 04/21/17 04/21/17 04/21/17 04/22/17 04/22/17 04/22/17 07:00 15:00 23:00 07:00 15:00 23:00 Intake Total 920 ml 240 ml Output Total 650 ml 950 ml Balance 270 ml -710 ml Intake Oral 920 ml 240 ml Output Urine Total 650 ml 950 ml # Bowel Movements 0 Physical Exam GENERAL: Well developed, well nourished. No acute distress. HEENT: Jugular venous pressure is normal. CHEST: Lungs clear to auscultation bilaterally. Unlabored respiratory effort. CARDIAC: Regular rate and rhythm without S3, S4. I/ ESTELA left upper sternal border. AVR sounds crisp at LLSB. ABDOMEN: Soft, nontender, no hepatosplenomegaly. Bowel sounds present. EXTREMITIES: No clubbing, cyanosis, or edema. Laboratory Laboratory Tests Test 04/21/17 12:35 04/21/17 23:48 04/22/17 05:00 Hemoglobin A1c 5.5 % Triglycerides Level 279 MG/DL Cholesterol Level 149 MG/DL LDL Cholesterol 66 MG/DL HDL Cholesterol 26.8 MG/DL Cholesterol/HDL Ratio 5.55 RATIO Vitamin B12 Level 437 PG/ML Folate GREATER THAN 20.0 NG/ML Free Thyroxine 0.99 NG/DL Thyroid Stimulating Hormone 3rd Gen 2.260 uIU/ML Activated Partial Thromboplast Time 35.3 SEC Prothrombin Time 12.6 SEC Prothromb Time International Ratio 1.2 RATIO Potassium Level 4.2 MEQ/L Phosphorus Level 4.1 MG/DL Magnesium Level 2.1 MG/DL Assessment and Plan Problem List: (1) Paroxysmal atrial flutter ICD Codes: I48.92 - Unspecified atrial flutter Status: Acute Plan: Remains in NSR. Tolerating propafenone. REC continue warfarin as for his AVR continue propafenone if patient discharged today, he would need Lovenox script, to cover him until INR back up to >2.0, and I recommend to patient INR up in [place] this Monday (2) CAD (coronary artery disease) ICD Codes: I25.10 - Atherosclerotic heart disease of [place] coronary artery without angina pectoris Status: Chronic Plan: No further atypical CP. Awaiting Lexiscan nuclear stress test. (3) History of aortic valve replacement ICD Codes: Z95.2 - Presence of prosthetic heart valve Status: Chronic Plan: Stable. Normal AVR function by echo. If patient discharged today, he would need Lovenox script, to cover him until INR back up to >2.0, and I recommend to patient INR up in [place] this Monday (4) Hypertension ICD Codes: I10 - Essential (primary) hypertension Status: Chronic Plan: Stable. Mostly normotensive. (5) Hyperlipidemia ICD Codes: E78.5 - Hyperlipidemia, unspecified Status: Chronic Plan: Stable. Acceptable lipid profile with LDL 66. Continue statin therapy. Code Status full code Discussed Condition With patient Problem Qualifiers (1) CAD (coronary artery disease): Qualified Codes: I25.119 - Atherosclerotic heart disease of [place] coronary artery with unspecified angina pectoris (2) Hypertension: Qualified Codes: I10 - Essential (primary) hypertension (3) Hyperlipidemia: Qualified Codes: E78.2 - Mixed hyperlipidemia Joss Edwards MD Apr 22, 2017 10:19
[2017-04-22] MEDS ORDERED: REGADENOSON INJ 0.4 MG/5 ML SYR ONE (12:42)
--- NOTE | 2017-04-22 13:14 | HHI.PR ---
Subjective Remarks Follow out atrial fibrillation with RVR/CAD 04/22/17-patient seen and examined, currently denies any chest pain and redness of breath. Pending stress test this a.m. INR 1.2 Objective Vitals Vital Signs Date Time Temp Pulse Resp B/P (MAP) Pulse Ox O2 Delivery O2 Flow Rate FiO2 04/22/17 12:00 66 04/22/17 11:26 98.1 61 18 135/79 (97) 96 04/22/17 11:00 57 04/22/17 10:00 62 04/22/17 09:00 68 04/22/17 08:00 65 04/22/17 07:36 98.2 68 18 128/76 (93) 95 04/22/17 07:32 95 Room Air 04/22/17 07:00 66 04/22/17 06:00 58 04/22/17 05:00 62 04/22/17 04:00 60 04/22/17 03:57 62 16 112/69 (83) 97 04/22/17 03:00 60 04/22/17 02:00 62 04/22/17 01:00 68 04/22/17 00:00 60 04/21/17 23:45 61 16 104/57 (73) 96 04/21/17 23:00 58 04/21/17 22:00 58 04/21/17 21:00 60 04/21/17 20:00 66 04/21/17 19:20 95 Room Air 04/21/17 19:20 98.1 67 18 118/67 (84) 95 04/21/17 19:00 66 04/21/17 18:00 74 04/21/17 17:00 86 04/21/17 16:00 71 04/21/17 15:12 95 Room Air 04/21/17 15:12 98.2 76 18 101/66 (78) 95 04/21/17 15:00 73 04/21/17 14:00 92 I/O 04/21/17 04/21/17 04/21/17 04/22/17 04/22/17 04/22/17 07:00 15:00 23:00 07:00 15:00 23:00 Intake Total 920 ml 240 ml Output Total 650 ml 950 ml Balance 270 ml -710 ml Intake Oral 920 ml 240 ml Output Urine Total 650 ml 950 ml # Bowel Movements 0 Result Diagram: 04/21/17 0722 04/22/17 0500 Imaging Last Impressions Chest X-Ray 04/20/17 0000 Signed Impressions: Service Date/Time: April 17:57 - CONCLUSION: Mild basilar atelectasis. Baljinder Eastman MD Objective Remarks GENERAL: NAD SKIN: Warm and dry. HEAD: Normocephalic. EYES: No scleral icterus. No injection or drainage. NECK: Supple, trachea midline. No JVD or lymphadenopathy. CARDIOVASCULAR: Irregular Regular rate and rhythm without murmurs, gallops, or rubs. RESPIRATORY: Breath sounds equal bilaterally. No accessory muscle use. GASTROINTESTINAL: Abdomen soft, non-tender, nondistended. MUSCULOSKELETAL: No cyanosis, or edema. BACK: Nontender without obvious deformity. No CVA tenderness. A/P Problem List: (1) Atrial fibrillation with RVR ICD Code: I48.91 - Unspecified atrial fibrillation Status: Acute (2) CAD (coronary artery disease) ICD Code: I25.10 - Atherosclerotic heart disease of [place] coronary artery without angina pectoris Status: Chronic (3) Hyperlipidemia ICD Code: E78.5 - Hyperlipidemia, unspecified Status: Chronic (4) Hypertension ICD Code: I10 - Essential (primary) hypertension Status: Chronic Assessment and Plan 56-year-old male with (1) Paroxysmal atrial flutter ICD Codes: I48.92 - Unspecified atrial flutter Status: Acute Plan: Remains in NSR. Tolerating propafenone. Atrial fibrillation with RVR -Currently rate control on propafenone -Continue warfarin as for his AVR - if patient discharged today, he would need Lovenox script, to cover him until INR back up to >2.0, and I recommend to patient INR up in [place] this Monday per cardiology Coronary artery disease awaiting Lexiscan nuclear stress test today 04/22 History of Aortic Valce Replacement normal AVR function by echo. If patient discharged today, he would need Lovenox script, to cover him until INR back up to >2.0, and repeat INR/PT 04/24 Essential hypertension Mostly normotensive. Hyperlipidemia LDL 66. Continue statin therapy. Problem Qualifiers (1) CAD (coronary artery disease): Qualified Codes: I25.119 - Atherosclerotic heart disease of [place] coronary artery with unspecified angina pectoris (2) Hyperlipidemia: Qualified Codes: E78.2 - Mixed hyperlipidemia (3) Hypertension: Qualified Codes: I10 - Essential (primary) hypertension Chris Oviedo MD Apr 22, 2017 13:14
--- NOTE | 2017-04-22 14:24 | RADRPT ---
EXAM DATE/TIME: 04/22/2017 12:14 [facility] COMPARISON: No previous studies available for comparison. INDICATIONS : Chest pain. Angina. Atrial fibrillation. DOSE: 31.5 mCi Tc99m Myoview at stress. 10.2 mCi Tc99m Myoview at rest. 0.4 mg Lexiscan STRESS SYMPTOMS: Dyspnea. EJECTION FRACTION: 61% MEDICAL HISTORY : Hypertension. Cardiovascular disease SURGICAL HISTORY : Angioplasty. CABG ENCOUNTER: Initial ACUITY: 1 day PAIN SCALE: 3/10 LOCATION: Substernal chest TECHNIQUE: The patient underwent pharmacologic stress with infusion of prescribed dose. Continuous ECG tracing was monitored during stress. Gated SPECT imaging was performed after stress and conventional SPECT i maging was performed at rest. The examination was performed on a SPECT/CT scanner, both attenuation and non-corrected datasets were reviewed. FINDINGS: DISTRIBUTION: The maximum perfused segment at stress is in the septal wall. PERFUSION STUDY: The pattern of perfusion at stress is within normal limits. GATED STUDY: There is intact wall motion and thickening without hypokinetic or dyskinetic segments. CONCLUSION: Normal examination. RISK CATEGORY: Low risk. Mirella Wang MD on April 22, 2017 at 14:20 Board Certified Radiologist. This report was verified electronically.
[2017-04-22] MEDS ORDERED: WARFARIN SOD 5 MG TAB PO SCH ×3 (16:00)
[2017-04-22] MEDS ORDERED: COUM5TAB PO (16:02)
[2017-04-22] MEDS ORDERED: ENOX100P SQ (16:02)
--- NOTE | 2017-04-22 16:04 | HHI.DS ---
Discharge Summary Admission Date Apr 20, 2017 at 19:25 Admitting Diagnosis Afib RVR, chest pain (1) Atrial fibrillation with RVR ICD Code: I48.91 - Unspecified atrial fibrillation Status: Acute (2) CAD (coronary artery disease) ICD Code: I25.10 - Atherosclerotic heart disease of [place] coronary artery without angina pectoris Status: Chronic (3) Hyperlipidemia ICD Code: E78.5 - Hyperlipidemia, unspecified Status: Chronic (4) Hypertension ICD Code: I10 - Essential (primary) hypertension Status: Chronic Brief History - From Admission 56-year-old male with a past medical history significant for hypertension, hyperlipidemia, atrial fibrillation anticoagulated on Coumadin, gout and coronary artery disease status post CABG/stent placement presents to the emergency department for evaluation of chest pain and shortness of breath. The patient reports that the chest pain started yesterday afternoon and felt like a tightness similar to indigestion. He reports that it gradually went away and he was able to sleep last night. The pain then returned this afternoon and was worse with associated shortness of breath, chest tightness that radiated down his left arm. The patient denies any nausea/vomiting. In the emergency department he was found to be diaphoretic and was in atrial flutter with a heart rate in the 150s. The patient does have a history of atrial fibrillation/ flutter for which he takes Coumadin. He reports that his chest pain has completely resolved. CBC/BMP: 04/21/17 0722 04/22/17 0500 Significant Findings Laboratory Tests Test 04/20/17 17:52 04/20/17 19:45 04/21/17 00:00 04/21/17 06:15 Red Blood Count 6.00 MIL/MM3 (4.50-5.90) Monocytes (%) (Auto) 13.1 % (0.0-8.0) Monocytes # (Auto) 1.0 TH/MM3 (0-0.9) Prothrombin Time 14.9 SEC (9.8-11.6) Random Glucose 107 MG/DL (74-106) 107 MG/DL (74-106) Estimat Glomerular Filtration Rate 88 ML/MIN (>89) Troponin I 0.06 NG/ML (0.02-0.05) 0.11 NG/ML (0.02-0.05) 0.12 NG/ML (0.02-0.05) B-Type Natriuretic Peptide 302 PG/ML (0-100) Total Creatine Kinase 309 U/L (39-308) Creatine Kinase MB 5.2 NG/ML (0.5-3.6) Test 04/21/17 07:22 04/21/17 12:35 04/21/17 23:48 04/22/17 05:00 Red Blood Count 5.92 MIL/MM3 (4.50-5.90) Monocytes (%) (Auto) 11.1 % (0.0-8.0) Prothrombin Time 14.2 SEC (9.8-11.6) 12.6 SEC (9.8-11.6) Triglycerides Level 279 MG/DL (42-150) HDL Cholesterol 26.8 MG/DL (40.0-60.0) Folate GREATER THAN 20.0 NG/ML Activated Partial Thromboplast Time 35.3 SEC (24.3-30.1) Test 04/22/17 10:20 Activated Partial Thromboplast Time 40.7 SEC (24.3-30.1) PE at Discharge GENERAL: NAD SKIN: Warm and dry. HEAD: Normocephalic. EYES: No scleral icterus. No injection or drainage. NECK: Supple, trachea midline. No JVD or lymphadenopathy. CARDIOVASCULAR: Irregular Regular rate and rhythm without murmurs, gallops, or rubs. RESPIRATORY: Breath sounds equal bilaterally. No accessory muscle use. GASTROINTESTINAL: Abdomen soft, non-tender, nondistended. MUSCULOSKELETAL: No cyanosis, or edema. BACK: Nontender without obvious deformity. No CVA tenderness. Pt Condition on Discharge: Good Discharge Disposition: Discharge Home Discharge Instructions DIET: Follow Instructions for: Heart Healthy Diet Activities you can perform: Regular-No Restrictions Chris Oviedo MD Apr 22, 2017 16:04
--- NOTE | 2017-04-22 16:52 | EKG ---
Date Performed: 04/20/2017 Time Performed: 23:56:59 PTAGE: 56 years EKG: ATRIAL FLUTTER/TACHYCARDIA INTRAVENTRICULAR CONDUCTION DELAY ABNORMAL ECG Compared to PREVIOUS TRACING , heart rate is slower, otherwise no significant change. PREVIOUS TRACIN 04/20/2017 18.15 DOCTOR: Deric Samuels Interpretating Date/Time 04/22/2017 16:50:43
--- NOTE | 2017-04-22 16:52 | EKG ---
Date Performed: 04/21/2017 Time Performed: 06:19:09 PTAGE: 56 years EKG: ECTOPIC ATRIAL TACHYCARDIA WITH SHORT NC INTERVAL, POSSIBLE ATRIAL FLUTTER INTRAVENTRICULAR CONDUCTION DELAY ABNORMAL ECG Compared to PREVIOUS TRACING , ventricular response to the atrial flutter is must faster, otherwise n o significant change. PREVIOUS TRACIN04/20/2017 23.56 DOCTOR: Deric Samuels Interpretating Date/Time 04/22/2017 16:51:21
[2017-04-22] MEDS ORDERED: PROP150T PO (18:51)
[2017-04-23] MEDS ORDERED: WARFARIN SOD 2.5 MG TAB PO SCH (16:00)
== END 2017-04-22 17:50 | disposition home or self-care (01) | DRG 309 ==
LOC: NEPC 16:51 → NEDA 19:25 → NEDH 04-21 01:02 → HCIS 04-21 08:47
PROVIDERS: ADMIT Hospitalist; ATTEND Hospitalist
DX: I48.91 Unspecified atrial fibrillation (principal); I25.110 Atherosclerotic heart disease of native coronary artery with unstable angina pectoris; Z95.1 Presence of aortocoronary bypass graft; Z95.2 Presence of prosthetic heart valve; Z95.5 Presence of coronary angioplasty implant and graft; Z79.01 Long term (current) use of anticoagulants; Z79.82 Long term (current) use of aspirin; I48.92 Unspecified atrial flutter; I10 Essential (primary) hypertension; E78.5 Hyperlipidemia, unspecified; M10.9 Gout, unspecified; G47.33 Obstructive sleep apnea (adult) (pediatric)
CPT/HCPCS: 71045; 78452; 80048; 80061; 82550; 82552; 82607; 82746; 83036; 83735; 83880; 84100; 84132; 84425; 84439; 84443; 84484; 85025; 85610; 85730; 93005; 93017; 93306; 96365; 96375; A9502; J1644; J2785